=== PATIENT | female | born 1990 | race African-American/Black ===

== ENCOUNTER 2017-12-30 11:59 | Emergency (ER) | payer MEDICAID, OTHER ==
[~2017-12-30] VITALS: Ht 167.6 cm; Wt 58.1 kg
[~2017-12-30 11:59] MED LIST: NORPTMEDS CO
[2017-12-30 12:11] VITALS: BP 115/71
== END 2017-12-30 14:04 | disposition home or self-care (01) ==
LOC: ER 11:59
DX: L03.317 Cellulitis of buttock (principal)

== ENCOUNTER 2018-08-28 17:51 | Emergency (ER) | payer OTHER ==
[~2018-08-28] VITALS: Ht 165.1 cm; Wt 51.3 kg
[2018-08-28 18:51] LABS: Basophils # (auto) 0 uL; Basophils % (auto) 0.6 % (0.0-2.0); Eosinophils # (auto) 0 uL; Eosinophils % (auto) 0.5 % (0.0-7.0); Hemoglobin 14.2 g/dL (12.2-16.2); Lymphocytes # (auto) 1.7 uL; Lymphocytes % (auto) 33.8 % (10.0-50.0); Mean Corpuscular Hemoglobin 27.5 pg (28.0-32.0); Mean Corpuscular Hgb Conc. 32.2 g/dL (32.0-36.0); Mean Corpuscular Volume 85.4 fL (80.0-100.0); Monocytes # (auto) 0.3 uL; Monocytes % (auto) 6.6 % (0.0-12.0); Neutrophils # (auto) 2.9 uL; Neutrophils % (auto) 58.5 % (37.0-80.0); Nucleated Red Blood Cells % 0.1 %; Platelet Count (auto) 279 10^3/uL (140-450); Red Blood Cells 5.15 10^6/uL (4.0-5.20); Red Cell Distribution Width 13.5 % (11.8-14.3)
[2018-08-28 19:09] LABS: Urine Bacteria NONE SEEN /hpf (None Seen); Urine Blood Negative /uL (Negative); Urine Mucus FEW (None Seen); Urine Specific Gravity 1.028 (1.001-1.035); Urine WBC 4 /hpf (0 - 5)
[2018-08-28 19:10] LABS: Albumin 4.1 g/dL (3.4-5.0); BUN/Creatinine Ratio 16.3; Calcium 8.8 mg/dL (8.5-10.1)
[2018-08-28 19:13] LABS: Bilirubin, Total 0.7 mg/dL (0.2-1.0); Total Protein 8.7 g/dL (6.4-8.2)
[2018-08-29] MEDS ORDERED: KETOROLAC TROMETH 60MG/2ML VIAL IM ONE (02:00)
[2018-08-29 02:23] VITALS: BP 130/78
== END 2018-08-29 03:16 | disposition home or self-care (01) ==
LOC: ER 17:55
DX: D13.4 Benign neoplasm of liver (principal); N39.0 Urinary tract infection, site not specified; K42.9 Umbilical hernia without obstruction or gangrene
CPT/HCPCS: 36415; 74176; 80053; 81001; 85025; 96372; 99284; J1885

== ENCOUNTER 2024-01-16 11:27 | Emergency (ER) | payer OTHER ==
[~2024-01-16] VITALS: Ht 165.1 cm; Wt 58.2 kg
[2024-01-16 14:09] VITALS: BP 122/81; PULSE 92; RESP 17; TEMP 98.1; O2SAT 100
[2024-01-16] MEDS: KETOROLAC TROMETH 30 MG/ML 1ML VIAL IM ONE (15:05)
[2024-01-16] MEDS ORDERED: NABU-72 PO (15:22)
[2024-01-16] MEDS ORDERED: AMOX500C2 PO (15:22)
== END 2024-01-16 15:34 | disposition home or self-care (01) ==
LOC: ER 11:27
DX: M26.69 Other specified disorders of temporomandibular joint (principal); K08.89 Other specified disorders of teeth and supporting structures
CPT/HCPCS: 96372; 99283; J1885